=== PATIENT | male | born 1970 | race Caucasian/White ===

== ENCOUNTER 2024-06-20 13:04 | Emergency (ER) | payer SELFPAY ==
--- OUTSIDE RECORDS SUMMARY | 2024-06-20 13:23 | XMS REPORT | Continuity of Care Document ---
Author Name Unknown Address [address] [place] [address] [address] [place] [address] [facility] Address [address] [facility] [address] [place] [address] Care Team Providers Care Patient Safety Sitter Name Role Phone Tab Walsh Attending Clinician Unavailable Physician, No Primary or Family Admitting Clinic digna Unavailable Payers Payer Name Policy Type Policy Number Effective Date Expirati on Date Source Allergies, Adverse Reactions, Alerts Allergy Name Allergy Type Status Severity Reaction(s) Onset Date Inactive Date Treating Clinician Comments Source pseudoep hedrine DA Active [place] PALPITATIONS 2023-03 00:00: 00 [facility] Encounters Start Date/Time End Date/Time Encounter Type Admission Type Attending Clinicians Care Facility Care Department Encounter ID Source 2023-12-13 22:56:00 2023-12-13 23:30:00 Emergency EM Tab Walsh [facility] [id number] 95 [facility] Notes Date/Time Note Provider Source 2023-12-13 23:19:00 [facility] ([facility]) EMERGENCY PROVIDER REPORT REPORT#:[id number] REPORT STATUS: Signed DATE:12/13/23 TIME: 2318 PATIENT: MARIELLA CHAHAL UNIT #: [id number] ROOM/BED: : 71 AGE: 53 SEX:M PCP PHYS: No Primary or Family Physician SERVICE AUTHOR: Tab Walsh DO REP SRV REP SRV TM: 2319 * ALL edits or amendments must be made on the electronic/computer document * HPI-Knee Prob/Inj Free Text HPI Notes Free Text HPI Notes 53 yo male presents to the ER with c/o left anterior knee injury 2 days ago. States tripped and hurt knee, then the following day he was drilling a whole into a door and the drill slipped and the bit punctured the sking of the left knee. General Initial Greet Date/Time 12/13/232257 Presentation Chief Complaint Knee injury L, Knee swelling L Hx Obtained From Patient Review of Systems ROS Statements All systems rev neg except as marked. Past Medical History - Adult Stated Complaint LEFT KNEE PAIN Allergies Coded Allergies: pseudoephedrine (From SUDAFED) (Intermediate, PALPITATIONS 12/13/23) Smoking status for patients 13 years old or older: Current every day smoker Physical Exam Vital Signs Vital Signs First Documented: Result Date Time Pulse Ox 99 12/12 2300 B/P 167/93 12/12 2300 B/P Mean 117 12/12 2300 O2 Delivery Room air 12/12 2300 Temp 36.2 12/12 2300 Pulse 100 12/12 2300 Resp 18 12/12 2300 Last Documented: Result Date Time Pulse Ox 99 12/12 2300 B/P 167/93 12/12 2300 B/P Mean 117 12/12 2300 O2 Delivery Room air 12/12 2300 Temp 36.2 12/12 2300 Pulse 100 12/12 2300 Resp 18 12/12 2300 Review of Vital Signs Reviewed Focused PE General/Const General/Const Awake, Alert MS Lower Extrem Text/Dict Notes Left anterior knee scab with surrounding erythema, warmth, swelling, and tenderness. There is full ROM. Interpretation Diagnostics Lab Results Interpretation Results Recent Impressions: RADIOLOGY - XR KNEE 1 OR 2 V LT 12/12 2306 Report Impression - Status: SIGNED Entered: 12/13/20232327 IMPRESSION: Unremarkable exam. Impression By: Angélica Duarte M.D. Imaging Statement Radiographic studies reviewed and considered in the medical decision-making. Re-Evaluation MDM Free Text MDM Notes Free Text MDM Notes ddx includes fracture, contusion, bursitis, cellulitis. Re-Evaluation/Progress Re-Evaluation/Progress Text/Dict Note left knee xrays were negative for any osseous injury or foreign body. Time of Re-Eval 2322 Re-Eval Status Unchanged ED Course Medication(s) Ordered Medication(s) Ordered: Anti-Infective Agents Sig/Justin Start time Last Medication Dose Route Stop Time Status Admin Cephalexin 500 MG X1ED STA 12/12 2302 DC 12/12 PO 12/12 2304 2311 Serums, Toxoids, And Vaccines Sig/Justin Start time Last Medication Dose Route Stop Time Status Admin Diphtheria/Tetanus/ 0.5 ML X1ED STA 12/126 DC 12/12 Acell Pertussis IM 12/12 2337 2342 Patient Discharge Departure Vital Signs/Condition Vital Signs First Documented: Result Date Time Pulse Ox 99 12/12 2300 B/P 167/93 12/12 2300 B/P Mean 117 12/12 2300 O2 Delivery Room air 12/12 2300 Temp 36.2 12/12 2300 Pulse 100 12/12 2300 Resp 18 12/12 2300 Last Documented: Result Date Time Pulse Ox 99 12/12 2300 B/P 167/93 12/12 2300 B/P Mean 117 12/12 2300 O2 Delivery Room air 12/12 2300 Temp 36.2 12/12 2300 Pulse 100 12/12 2300 Resp 18 12/12 2300 All vital signs available at the time of this entry have been reviewed. Condition Stable Clinical Impression Clinical Impression Primary Impression: Prepatellar bursitis, right knee Secondary Impressions: Cellulitis of left knee Disposition Decision Discharge )( Discharged to Home Yes )( Time 2322 )( Date 12/13/23 Discharge/Care Plan Counseled Regarding Diagnosis, Prescriptions, Need for follow-up, When to return to ED (Auto) Prescriptions Current Visit Scripts CEPHALEXIN (KEFLEX) 500 MG PO Q6H CEPHALEXIN (KEFLEX) 500 MG PO Q6H #28 CAPS IBUPROFEN (MOTRIN) 600 MG PO QID PRN PRN PAIN IBUPROFEN (MOTRIN) 600 MG PO QID PRN PRN PAIN #30 TABS Patient Instructions ED Bursitis Additional Instructions Thank you for allowing us to provide emergent medical care to you or your family member. We consider it a privilege to have served you during your illness or injury. Please read and follow your discharge instructions. - IF YOUR SYMPTOMS BECOME WORSE AND YOU ARE UNABLE TO REACH YOUR USUAL HEALTH CARE PROVIDER, YOU SHOULD RETURN TO THE EMERGENCY DEPARTMENT. The treatment and evaluation you received have been provided on an emergency basis only and is not intended to be a substitute for, or an effort to provide complete medical care. PLEASE MAKE AN APPOINTMENT TO FOLLOW UP WITH YOUR DOCTOR or SPECIALIST FOR ONGOING MONITORING AND INTERVENTION. We would appreciate your feedback on the care you received today. Please take a few minutes to fill out the survey you will receive in the mail in a few weeks. - Family Medicine -Adrien Leavitt MD [address], [place] [address] - -Paty Bruce MD [address], [place], [place] [address] at [address] RPT #:[id number] END OF REPORT [facility]
[2024-06-20 13:45] LABS: Absolute Basophils 0.1 K/uL (0-0.5); Absolute Eosinophils 0.1 K/uL (0-0.5); Absolute Lymphocytes (CBC) 1.4 K/uL (0.7-4.9); Absolute Monocytes 0.7 K/uL (0.1-1.3); Absolute Neutrophil 7.3 K/uL (1.8-8.0); Basophils % 0.6 % (0-1.3); Eosinophils % 0.8 % (0-4.4); Hematocrit 42.5 % (39.6-49.0); Hemoglobin 14.6 g/dL (13.6-17.9); Lymphocytes % 14.5 % (15.3-44.8); MCH 33.4 pg (27.0-35.0); MCHC 34.4 g/dL (32.0-36.0); MCV 97.1 fL (80-100); MPV 9.3 fL (7.6-11.3); Monocytes % 7.3 % (3.3-12.3); Neutrophils % 76.8 % (41.7-73.7); Nucleated Red Blood Cells % 0.1 % (0-0); Platelets 254 thou/uL (152-406); RBC Red Blood Cell Count 4.37 M/uL (4.33-5.43); Red Cell Distribution Width 12.9 % (12.1-15.2)
[2024-06-20 13:57] LABS: Anion Gap 7.2 mEq/L (5.0-15.0); BUN Blood Urea Nitrogen 14 mg/dL (7-18); Bicarbonate 31 mEq/L (21-32); Glomerular Filtration Rate 91 ml/min (=/>90); Glucose Level 135 mg/dL (74-106); NT PRO-BNP 35 pg/mL (<125); Potassium 4.2 mEq/L (3.5-5.1); Sodium Level 139 mEq/L (136-145)
[2024-06-20 14:00] LABS: Troponin High Sensitivity < 3.0 pg/mL (<58.9)
--- NOTE | 2024-06-20 14:06 | RAD REPORT ---
EXAMINATION: ONE VIEW CHEST XR CLINICAL INDICATION: CHEST PAIN TECHNIQUE: Frontal chest projection is submitted. Examination is limited by patient positioning and t echnique. COMPARISON: No prior exam. FINDINGS: The lungs are well inflated and clear. The heart is normal in size. No displaced fractures identified . IMPRESSION: No acute intrathoracic abnormalities.
--- NOTE | 2024-06-20 14:15 | ER ---
Nurse's Notes [facility] Name: Adonis Hall Age: 54 yrs Sex: Male : 1970 Arrival Date: 06/20/2024 Time: 13:04 Bed IW2 Private MD: Diagnosis: Essential (primary) hypertension Presentation: 06/20 13:18 Chief complaint: SBP 190s today at rehab, and feeling "dazed" x 3 weeks. Coronavirus hb screen: At this time, the client does not indicate any symptoms associated with coronavirus-19. Ebola Screen: No symptoms or risks identified at this time. Initial Sepsis Screen: Does the patient meet any 2 criteria? No. Patient's initial sepsis screen is negative. Does the patient have a suspected source of infection? No. Patient's initial sepsis screen is negative. Risk Assessment: Do you want to hurt yourself or someone else? Patient reports no desire to harm self or others. Onset of symptoms was June 03, 2024. 13:18 Method Of Arrival: Ambulatory hb 13:18 Acuity: GITA 3 hb Triage Assessment: 13:21 General: Appears in no apparent distress. Behavior is calm, cooperative. Pain: Denies hb pain. Neuro: GCS 15. Historical: - Allergies: 13:19 No Known Allergies; hb - PMHx: 13:19 Arthritis; hb - PSHx: 13:19 Broken Jaw; Appendectomy; hb - Immunization history:: Adult Immunizations up to date. - Infectious Disease History:: Denies. - Social history:: Smoking status: Patient/guardian denies using tobacco. Assessment: 13:33 General: See triage assessment . hb 14:21 Reassessment: Patient is alert, oriented x 3, equal unlabored respirations, skin hb warm/dry/pink. Vital Signs: 13:20 BP 178 / 106; Pulse 92; Resp 16; Temp 98.6; Pulse Ox 100% on R/A; Weight 67.59 kg; hb Height 5 ft. 7 in. ; Pain 0/10; 13:20 Body Mass Index 23.34 (67.59 kg, 170.18 cm) hb 13:20 Pain Scale: Adult hb ED Course: 13:10 Patient arrived in ED. cj3 13:11 Casimiro Pérez FNP-C is PHCP. dr5 13:11 Anton Bae MD is Attending Physician. dr5 13:19 Triage completed. hb 13:21 Arm band placed on. hb 13:29 Initial lab(s) drawn, by ED staff, sent to lab. EKG done, by ED staff, reviewed by cyndi TORRES. 13:33 Basic Metabolic Panel Sent. hb 13:33 CBC with Diff Sent. hb 13:33 NT PRO-BNP Sent. hb 13:33 Troponin HS Sent. hb 14:03 XRAY Chest (1 view) In Process Unspecified. EDMS Administered Medications: 14:21 Drug: Lisinopril PO 10 mg PO once Route: PO; hb 14:21 Drug: Hydrochlorothiazide PO 12.5 mg PO once Route: PO; hb Outcome: 14:15 Discharge ordered by MD. dr5 14:21 Discharged to home ambulatory, hb 14:21 Condition: stable 14:21 Discharge instructions given to patient, Instructed on discharge instructions, follow up and referral plans. medication usage, Demonstrated understanding of instructions, follow-up care, medications, Prescriptions given X 1, 14:22 Patient left the ED. hb Signatures: Dispatcher [employer] EDMS Bertha Balderas RN RN Casimiro Busch, BRIAN AUT[employer]AT[employer] PRINT DEVELOPER-[id number] Анна Sanders [email or web address]
--- NOTE | 2024-06-20 14:15 | EDPHYS ---
Physician Documentation [facility] Name: Adonis Hall Age: 54 yrs Sex: Male : 1970 Arrival Date: 06/20/2024 Time: 13:04 Bed IW2 Private MD: ED Physician Anton Bae HPI: 06/20 13:31 This 54 yrs old Male presents to ER via Ambulatory with complaints of High dr5 Blood Pressure. 13:31 The patient has elevated blood pressure and discovered this Rehab. Onset: The dr5 symptoms/episode began/occurred 3 week(s) ago. Patient is a 54-year-old male with history of arthritis coming in with 3 weeks of intermittent elevated blood pressure that he has checked at the rehab. Patient denies any symptoms at this time including chest pain, shortness of breath, abdominal pain, or fever. Patient states that he went to his doctor at the rehab who did not prescribe any medications for his elevated blood pressure.. Historical: - Allergies: 13:19 No Known Allergies; hb - PMHx: 13:19 Arthritis; hb - PSHx: 13:19 Broken Jaw; Appendectomy; hb - Immunization history:: Adult Immunizations up to date. - Infectious Disease History:: Denies. - Social history:: Smoking status: Patient/guardian denies using tobacco. ROS: 13:31 Constitutional: as per hpi dr5 Exam: 13:29 Constitutional: This is a well developed, well nourished patient who is awake, alert, dr5 and in no acute distress. Eyes: Pupils equal round and reactive to light, extra-ocular motions intact. Lids and lashes normal. Conjunctiva and sclera are non-icteric and not injected. Cornea within normal limits. Periorbital areas with no swelling, redness, or edema. ENT: Nares patent. No nasal discharge, no septal abnormalities noted. Tympanic membranes are normal and external auditory canals are clear. Oropharynx with no redness, swelling, or masses, exudates, or evidence of obstruction, uvula midline. Mucous membranes moist. Neck: Trachea midline, no thyromegaly or masses palpated, and no cervical lymphadenopathy. Supple, full range of motion without nuchal rigidity, or vertebral point tenderness. No Meningismus. Chest/axilla: Normal chest wall appearance and motion. Nontender with no deformity. No lesions are appreciated. Cardiovascular: Regular rate and rhythm with a normal S1 and S2. Normal PMI, no JVD. No pulse deficits. Respiratory: Lungs have equal breath sounds bilaterally, clear to auscultation. No rales, rhonchi or wheezes noted. No increased work of breathing, no retractions or nasal flaring. Back: No spinal tenderness. No costovertebral tenderness. Full range of motion. Skin: Warm, dry with normal turgor. Normal color with no rashes, no lesions, and no evidence of cellulitis. Neuro: Awake and alert, GCS 15, oriented to person, place, time, and situation. Cranial nerves II-XII grossly intact. Motor strength 5/5 in all extremities. Sensory grossly intact. Cerebellar exam normal. Normal gait. 13:29 Constitutional: The patient appears in no acute distress, 13:31 Constitutional: This is a well developed, well nourished patient who is awake, alert, dr5 and in no acute distress. Vital Signs: 13:20 BP 178 / 106; Pulse 92; Resp 16; Temp 98.6; Pulse Ox 100% on R/A; Weight 67.59 kg; hb Height 5 ft. 7 in. ; Pain 0/10; 13:20 Body Mass Index 23.34 (67.59 kg, 170.18 cm) hb 13:20 Pain Scale: Adult hb MDM: 13:24 Medical Screening Exam initiated dr5 14:23 Differential diagnosis: hypertensive crisis, Electrolyte imbalance, acute kidney dr5 injury, congestive heart failure, [place]. Data reviewed: vital signs, nurses notes. I considered the following discharge prescriptions or medication management in the emergency department Medications were administered in the Emergency Department. See MAR. Care significantly affected by the following chronic conditions: Arthritis. Care significantly affected by the following Social Determinants of Health: Poor access to healthcare and/or lack of insurance, Poor access to transportation, Problems related to employment. 14:25 Counseling: I had a detailed discussion with the patient and/or guardian regarding the dr5 historical points, exam findings, and any diagnostic results supporting the discharge/admit diagnosis, lab results, the need for outpatient follow up, for definitive care, a family practitioner, to return to the emergency department if symptoms worsen or persist or if there are any questions or concerns that arise at home. ED course: Discussed labs in detail with patient and printed out results and placed with discharge paperwork. First dose of blood pressure medications given in ER. Will give small dose of lisinopril and hydrochlorothiazide daily for 1 day and have patient follow-up primary care doctor. All questions answered. Patient remained symptom-free.. 06/20 13:24 Order name: Basic Metabolic Panel; Complete Time: 14:04 [facility] 06/20 13:24 Order name: CBC with Diff; Complete Time: 13:50 dr5 06/20 13:24 Order name: NT PRO-BNP; Complete Time: 14:04 [facility] 06/20 13:24 Order name: Troponin HS; Complete Time: 14:04 [facility] 06/20 13:24 Order name: XRAY Chest (1 view); Complete Time: 14:15 [facility] 06/20 13:24 Order name: EKG - Nurse/Tech; Complete Time: 13:33 dr5 EC:29 Rate is 86 beats/min. Rhythm is regular. QRS [place] is Normal. [place] interval is normal at dr5 134 msec. QRS interval is normal at 102 msec. Administered Medications: 14:21 Drug: Lisinopril PO 10 mg PO once Route: PO; hb 14:21 Drug: Hydrochlorothiazide PO 12.5 mg PO once Route: PO; hb Disposition Summary: 06/20/24 14:15 Discharge Ordered Notes: Location: Home dr5 Condition: Stable dr5 Diagnosis - Essential (primary) hypertension dr5 Followup: dr5 - With: Emergency Department - When: As needed - Reason: Worsening of condition Followup: dr5 - With: Private Physician - When: 1 - 2 days - Reason: Recheck today's complaints, Continuance of care, Re-evaluation by your physician Discharge Instructions: - Discharge Summary Sheet dr5 - Hypertension, Adult dr5 Forms: - Medication Reconciliation Form dr5 - Patient Portal Instructions dr5 - Leadership Thank You Letter dr5 Prescriptions: - Lisinopril-Hydrochlorothiazide 10-12.5 mg Oral tablet - take 1 tablet ORAL route once daily; 30 tablet; Refills: 0, Product Selection dr5 Permitted Signatures: Dispatcher [employer] EDMS Bertha Balderas RN RN Casimiro Busch, ASSOCIATE CREATIVE DIRECTOR-C ASSOCIATE CREATIVE DIRECTOR-Cdr5 Corrections: (The following items were deleted from the chart) 13:24 13:24 BASIC METABOLIC PANEL+C.LAB.BRZ ordered. EDMS EDMS 13:24 13:24 CBC+H.LAB.BRZ ordered. EDMS EDMS 13:24 PROBNP+C.LAB.BRZ ordered. EDMS EDMS 13: Troponin High Sensitivity+C.LAB.BRZ ordered. EDMS EDMS : Chest Single View+RAD.RAD.BRZ ordered. EDMS EDMS
[2024-06-20] MEDS ORDERED: hydroCHLOROthiazide 25 MG TAB ONE (14:20)
[2024-06-20] MEDS ORDERED: lisinopriL 10 MG TAB ONE (14:20)
[2024-06-20 14:45] VITALS: BP 178/106; TEMP 98.6; O2SAT 100
--- NOTE | 2024-06-23 10:56 | EKG ---
Test Date: 2024-06-20 Test Time: 13:29:40 Documentation Supervisor: HB MEASUREMENT RESULTS: Intervals: Rate: 86 CO: 134 QRSD: 102 QT: 364 QTc: 435 [place]: P: 75 CO: 134 QRS: 67 T: 59 INTERPRETIVE STATEMENTS: Normal sinus rhythm Normal ECG No previous ECG available for comparison Electronically Signed On 06-23-24 10:50:43 CDT by Giuseppe Ramsey
== END 2024-06-20 14:22 | disposition home or self-care (01) ==
LOC: ER 13:04
DX: I10 Essential (primary) hypertension (principal)
CPT/HCPCS: 36415; 71045; 80048; 83880; 84484; 85025; 93005; 99284